=== PATIENT | female | born 1950 | race Caucasian/White ===

== ENCOUNTER → 2016-06-19 | Outpatient (CLI) | payer OTHER | LOC: FIMAGING 15:38 | DX: Z12.31 Encounter for screening mammogram for malignant neoplasm of breast (principal); Z80.3 Family history of malignant neoplasm of breast | CPT/HCPCS: G0202 ==

== ENCOUNTER → 2016-10-05 | Outpatient (CLI) | payer BC | LOC: FLAB 16:51 | PROVIDERS: ATTEND Physician Assistant | DX: J40 Bronchitis, not specified as acute or chronic (principal) ==

== ENCOUNTER → 2017-03-25 | Outpatient (CLI) | payer BC, OTHER ==
[~2017-03-25] MED LIST: IOPAMIDOL (ISOVUE-300) 100 ML BTL ONE
== END ==
LOC: FIMAGING 14:49
PROVIDERS: ATTEND Physician Assistant Medical
DX: R59.0 Localized enlarged lymph nodes (principal); S32.010A Wedge compression fracture of first lumbar vertebra, initial encounter for closed fracture; S32.020A Wedge compression fracture of second lumbar vertebra, initial encounter for closed fracture; S32.030A Wedge compression fracture of third lumbar vertebra, initial encounter for closed fracture
CPT/HCPCS: Q9967

== ENCOUNTER 2017-04-12 05:46 | Day surgery (SDC) | payer OTHER ==
[2017-04-12] MEDS ORDERED: LIDOCAINE 1% 2 ML INJ ID PRN (06:11)
[2017-04-12] MEDS ORDERED: LR 1,000 ML IV ONE (06:11)
--- NOTE | 2017-04-12 06:54 | PDGENHP ---
History and Physical - Chief Complaint swollen lymph nodes - History of Present Illness swollen lymph nodes in left inguinal, right axillary region History Information - Allergies/Home Medication List Allergies/Adverse Reactions: Penicillins Allergy (Verified 04/27/15 12:34) Sulfa (Sulfonamide Antibiotics) Allergy (Verified 04/27/15 12:34) Home Medications: ASPIRIN 04/12/17 [Last Taken 04/09/17] Allergy Medication 04/12/17 [Last Taken 3 Weeks Ago ~03/22/17] Osteo Bi-Flex Caplet 04/12/17 [Last Taken 04/09/17] VITAMIN D 04/12/17 [Last Taken 04/09/17] I have personally reviewed and updated: family history, medical history, social history, surgical history - Past Medical History Additional medical history: monoclonal protein abnormality - Surgical History Reports: hernia repair Additional surgical history: c section - Social History Smoking Status: Never smoked Alcohol Use: None Drug Use: None 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[employer], transportation consultant Review of Systems Review of Systems: negaytive ten point ROS Physical Exam Physical Exam: Temp Pulse Resp BP Pulse Ox 36.8 C 73 16 104/63 90 L 04/12/17 06:12 04/12/17 06:12 04/12/17 06:12 04/12/17 06:12 04/12/17 06:12 Constitutional: no apparent distress Eyes: PERRL Ears, Nose, Mouth, Throat: moist mucous membranes, hearing normal Cardiovascular: regular rate and rhythym Peripheral Pulses: 2+: dorsalis-pedis (R), dorsalis-pedis (L) Respiratory: no respiratory distress Gastrointestinal: soft, non-tender abdomen Skin: normal color Musculoskeletal: normal joint ROM Neurologic: AAOx3 Psychiatric: interacting appropriately Lymph, Heme, Immunologic: lymphadenopathy Assessment & Plan Assessment: 66yo female with left inguinal right axillary lymphadenopathy Plan: biopsy of left inguinal right axillary lymph nodes
--- NOTE | 2017-04-12 06:57 | PDHPUP ---
History & Physical Update H&P update statement: This history and physical update is based on an assessment of the patient which was completed after admission or registration (within 24 hours), but prior to the surgery/procedure. updated
[2017-04-12] MEDS ORDERED: BUPIVACAINE 0.5% 30 ML SDV ONE (06:59)
[2017-04-12] MEDS ORDERED: THROMBIN (BOVINE) 20,000 UNIT SPRAY TP ONE (06:59)
[2017-04-12] MEDS ORDERED: BACITRACIN ZINC 14.2 GM OINTTUBE TP ONE (06:59)
--- NOTE | 2017-04-12 06:59 | PDANEPAE ---
ANE History of Present Illness 66 year old female for groin lymph node biopsy. ANE Past Medical History - Cardiovascular History Hx Hypertension: No Hx Arrhythmias: No Hx Chest Pain: No Hx Coronary Artery / Peripheral Vascular Disease: No Hx CHF / Valvular Disease: No Hx Palpitations: No - Pulmonary History Hx COPD: No Hx Asthma/Reactive Airway Disease: No Hx Recent Upper Respiratory Infection: No Hx Oxygen in Use at Home: No Hx Sleep Apnea: No Sleep Apnea Screening Result - Last Documented: Negative - Neurologic History Hx Cerebrovascular Accident: No Hx Seizures: No Hx Dementia: No - Endocrine History Hx Diabetes: No Hypothyroid: No Hyperthyroid: No Obesity: no - Renal History Hx Renal Disorders: No - Liver History Hx Hepatic Disorders: No - Neurological & Psychiatric Hx Hx Neurological and Psychiatric Disorders: No - Cancer History Hx Cancer: No - Congenital Disorder History Hx Congenital Disorders: Yes Congenital History Comment: different shaped uterus - GI History Hx Gastrointestinal Disorders: No - Other Health History Other Health History: OSTEOPENIA. ELEVATED BLOOD PROTEIN FOLLOWED BY DR MIRELES. DISCOMFORT RT SHLDR - Chronic Pain History Chronic Pain: No - Surgical History Prior Surgeries: RT BUNION 2008. ORIF RT WRIST WITH POST HARDWARE REMVL. L wrist sx with hardware. UMBILICAL HERNIA. x2 ANE Review of Systems Review of systems is: negative Review of Systems: - Exercise capacity Exercise capacity: >=4 METS METS (RN): 5 METS ANE Patient History - Allergies Allergies/Adverse Reactions: Penicillins Allergy (Verified 04/27/15 12:34) Sulfa (Sulfonamide Antibiotics) Allergy (Verified 04/27/15 12:34) - Home Medications Home medications: home medication list seen and reviewed Home Medications: ASPIRIN 04/12/17 [Last Taken 04/09/17] Allergy Medication 04/12/17 [Last Taken 3 Weeks Ago ~03/22/17] Osteo Bi-Flex Caplet 04/12/17 [Last Taken 04/09/17] VITAMIN D 04/12/17 [Last Taken 04/09/17] - NPO status NPO Status: no food or drink >8 hours NPO Since - Liquids (Date): 04/11/17 NPO Since - Liquids (Time): 20:00 NPO Since - Solids (Date): 04/11/17 NPO Since - Solids (Time): 18:00 - Anes Hx Anes Hx: no prior problems - Smoking Hx Smoking Status: Never smoked - Alcohol Use Alcohol Use: None - Family Anes Hx Family Anes Hx: neg - N/A Family Hx Anesthesia Complications: none ANE Labs/Vital Signs - Vital Signs Vital Signs: reviewed preoperatively; see RN documention for details Blood Pressure: 104/63 Heart Rate: 73 Respiratory Rate: 16 O2 Sat (%): 90 Height: 160.02 cm Weight: 53.07 kg ANE Physical Exam - Airway Neck exam: FROM Mallampati Score: Class 2 - Pulmonary Pulmonary: no respiratory distress - Cardiovascular Cardiovascular: regular rate and rhythym - ASA Status ASA Status: II ANE Anesthesia Plan Anesthesia Plan: GA w LMA, GA with mask Total IV Anesthesia: No
[2017-04-12] MEDS ORDERED: CLINDAMYCIN 900 MG/DEXTROSE 50 ML IV ONE (07:00)
[2017-04-12] MEDS ORDERED: MIDAZOLAM 2 MG/2 ML VIAL IVP ONE (07:01)
[2017-04-12] MEDS ORDERED: PROPOFOL/EMULSION 500 MG/50 ML BOTTLE IV ONE (07:14)
[2017-04-12] MEDS ORDERED: fentaNYL 100 MCG/2 ML INJ IVP PRN (07:38)
[2017-04-12] MEDS ORDERED: NALOXONE HCL 0.4 MG/ML INJ IVP PRN (07:38)
[2017-04-12] MEDS ORDERED: HYDROCODONE/APAP 5/325 TAB PO PRN (07:38)
[2017-04-12] MEDS ORDERED: LR 500 ML IV PRN (07:38)
[2017-04-12] MEDS ORDERED: ONDANSETRON 4 MG/2 ML VIAL IVP PRN (07:38)
[2017-04-12] MEDS ORDERED: DEXAMETHASONE 4 MG/ML VIAL ONE (07:39)
[2017-04-12] MEDS ORDERED: ONDANSETRON 4 MG/2 ML VIAL ONE (07:39)
[2017-04-12] MEDS ORDERED: PHENYLEPHRINE HCL 100 MCG/ML SYR ONE (07:41)
[2017-04-12] MEDS ORDERED: fentaNYL 100 MCG/2 ML INJ ONE (07:41)
[2017-04-12] MEDS ORDERED: KETOROLAC 30 MG/1 ML SDV ONE (07:55)
[2017-04-12] MEDS ORDERED: SUGAMMADEX SODIUM 200 MG/2 ML VIAL IVP ONE (08:01)
--- NOTE | 2017-04-12 08:21 | POSTOPPROG ---
Post Op Note Date of Operation: 04/12/17 Surgeon: Patel Roman Assembler Wet Wash: Leonides Conklin Anesthesiologist: Dr Mccurdy Anesthesia: GET(General Endotracheal) Pre-op Diagnosis: lymphadenopathy Post-op Diagnosis: same Indication: same Procedure: left inguinal lymph node bx Findings: lymph node Inf/Abcess present in the surg proc area at time of surgery?: No Depth: Deep Incisional (Fascial) EBL: Minimal Specimen(s): left ing node
[2017-04-12 08:43] VITALS: TEMP 97.9
[2017-04-12 09:07] VITALS: PULSE 65; RESP 14
[2017-04-12 10:28] VITALS: BP 96/58
[2017-04-12 12:16] VITALS: O2SAT 91
--- NOTE | 2017-04-12 16:34 | POSTANESTH ---
Post Anesthetic Evaluation Cardiovascular Status: Normal, Stable, Similar to Pre-Op Cond Respiratory Status: Normal, Stable Level of Consciousness/Mental Status: Can Participate in Eval Pain Control: Adequate, Prn Tx Ordered Nausea/Vomiting Control: Adequate, Prn Tx Ordered Complications Possibly Related to Anesthesia: None Noted
[2017-04-13 16:00] LABS: FINAL DIAGNOSIS See Comments; MICROSCOPIC DESCRIPTION See Comments
--- NOTE | 2017-04-14 06:20 | GOP ---
[f rep st] OPERATIVE REPORT DATE OF OPERATION: 04/12/2017 SURGEON: Patel Roman MD MANUFACTURING TEST TECHNICIAN: PERRY Xiong. PREOPERATIVE DIAGNOSIS: Diffuse adenopathy. POSTOPERATIVE DIAGNOSIS: Diffuse adenopathy, pathology pending. PROCEDURE PERFORMED: Left femoral node superficial dissection. FINDINGS: The patient was found to have multiple large nodes in the left femoral area which appeared to be consistent possibly with lymphoma. Final path is pending. ESTIMATED BLOOD LOSS: Negligible. DESCRIPTION OF PROCEDURE: Patient was taken to the operating room, where she received satisfactory I V sedation monitored anesthesia care by Dr. Mccurdy. She was placed in a supine position, prepped and draped in the usual sterile fashion. An oblique incision was made in the left femoral area over the palpable mass. Dissection extended down through subcutaneous tissue. The mass appeared to be multi ple lymph nodes fused together but 1 particularly large deep was noted. This was all carefully disse cted free from surrounding neurovascular elements. Hemostasis was obtained with electrocautery and h emoclips. The entire 2-1/2 cm lymph node and some adjacent nodes were dissected free and sent to [facility]. Hemostasis was carefully obtained. The wound was infiltrated with 0.5% Marcaine and closed in layers using 3-0 Vicryl deep fascia, 3-0 Vicryl for the subcu, 4-0 Monocryl subcuticular stitch fo r skin. All layers infiltrated with 0.5% Marcaine. COMPLICATIONS: There were none. Copy requested to: PERRY Valadez /[id number]/MODL
== END 2017-04-12 12:30 | disposition home or self-care (01) ==
LOC: FSGY 05:46
PROVIDERS: ATTEND Surgery
PROC: 07TJ0ZZ Resection of Left Inguinal Lymphatic, Open Approach (ICD-10-PCS; principal; 2017-04-12 07:15)
DX: R59.0 Localized enlarged lymph nodes (principal); Z88.0 Allergy status to penicillin; Z88.2 Allergy status to sulfonamides
CPT/HCPCS: 88184-90; 88185-91; J1100; J1885; J2250; J2370; J2405; J2704; J3010

== ENCOUNTER → 2017-05-15 | Outpatient (CLI) | payer OTHER | LOC: FIMAGING 10:49 | PROVIDERS: ATTEND Surgery | DX: C83.00 Small cell B-cell lymphoma, unspecified site (principal) ==

== ENCOUNTER → 2018-06-27 | Outpatient (CLI) | payer OTHER | LOC: FIMAGING 14:23 | PROVIDERS: ATTEND Physician Assistant Medical | DX: Z12.31 Encounter for screening mammogram for malignant neoplasm of breast (principal) ==